=== PATIENT | female | born 2000 | race Caucasian/White ===

== ENCOUNTER 2024-03-21 14:24 | Emergency (ER) | payer MEDICAID, SELFPAY ==
[2024-03-21 14:28] VITALS: BP 120/70; RESP 22; TEMP 37.1; O2SAT 99; BMI 23.3
--- NOTE | 2024-03-21 14:54 | PD.EDRME ---
Rapid Medical Screening Exam RME Arrival date/time: 03/21/24 14:24 Chief Complaint: Alcohol Time Seen by Provider: 03/21/24 14:40 Vital signs: Vital Signs Temperature 98.7 F 03/21/24 14:28 Respiratory Rate 22 H 03/21/24 14:28 Blood Pressure 120/70 03/21/24 14:28 Pulse Oximetry (%) 99 03/21/24 14:28 Oxygen Delivery Method Room Air 03/21/24 14:28 Vital signs reviewed by provider: Yes RME Narrative: 23-year-old female presents for evaluation of nausea and vomiting. She reports that she is in alcohol withdrawal. She reports drinking half a gallon of vodka last night at approximately 10 PM. She reports x1 prior hospitalization for alcohol withdrawal. Denies CP, SOB, MCKEON, dizziness, confusion, and seizures.
[2024-03-21 15:49] LABS: Basophils % (Auto) 0 % (0-2.5); Eosinophils % (Auto) 0 % (0-10); Hematocrit 41.3 % (36.0-46.0); Hemoglobin 13.2 g/dL (12.0-16.0); Immature Granulocytes % (Auto) 0 % (0-0); Immature Granulocytes Auto 0.02 Thou/mm3 (0.00-0.00); Lymphocytes # (Auto) 0.3 Thou/mm3 (1.0-4.8); Lymphocytes % (Auto) 3 % (10-50); Mean Corpuscular Hemoglobin 27.7 pg (25.0-35.0); Mean Corpuscular Volume 87 fL (80-100); Monocytes # (Auto) 0.2 Thou/mm3 (0.0-0.8); Monocytes % (Auto) 2 % (0-12); Neutrophils # (Auto) 9.6 Thou/mm3 (1.8-7.7); Neutrophils % (Auto) 95 % (37-80); Nucleated Red Blood Cell % 0 /100 WBC (0); Platelet Count 430 Thou/mm3 (140-440); RDW Standard Deviation 45.6 fL (36.4-46.3); Red Blood Count 4.77 Miln/mm3 (4.00-5.20); White Blood Count 10.1 Thou/mm3 (3.6-11.0)
[2024-03-21 16:04] LABS: Alanine Aminotransferase 69 U/L (10-49); Albumin, Serum 5.5 gm/dL (3.5-5.0); Alcohol, Blood Medical 290.3 mg/dL (0-10.0); Alkaline Phosphatase 37 U/L (46-116); Anion Gap 25 (7-16); Aspartate Amino Transferase 98 U/L (0-34); BUN/Creatinine Ratio 11 Ratio (12-20); Bilirubin,Total 0.3 mg/dL (0.3-1.2); Blood Urea Nitrogen 8 mg/dL (9-23); Calcium 9.5 mg/dL (8.3-10.6); Calcium (Corrected) 9.5 mg/dL (8.5-10.1); Chloride 96 mMol/L (98-107); Creatinine (Component) 0.7 mg/dL (0.6-1.3); Estimated Creatinine Clearance 111.5 mL/min (>60); Globulin 2.8 gm/dL (2.3-3.5); Glucose 100 mg/dL (74-106); Lipase 66 U/L (12-53); Osmolality,Calculated 266 (275-295); Potassium 4.3 mMol/L (3.4-5.1); Sodium 134 mMol/L (136-145); Total Protein 8.3 gm/dL (5.7-8.2); eGFR > 60 See Note
[2024-03-21 16:05] LABS: HCG Qualitative,Urine Negative
[2024-03-21 16:22] LABS: Amphetamine/Methamp Scrn,U Negative (Negative); Barbiturate Screen,Urine Negative (Negative); Benzodiazepines Screen,Urine Negative (Negative); Benzoylecgonine Screen, Ur Negative (Negative); Fentanyl Screen,Urine Negative (Negative); Opiate Screen,Urine Negative (Negative); THC Screen,Urine Negative (Negative)
[2024-03-21 16:26] LABS: Carbon Dioxide 13.5 mMol/L (20.0-31.0)
[2024-03-21 17:44] VITALS: BP 115/80; PULSE 142; RESP 20; TEMP 36.7; O2SAT 99
[2024-03-21] MEDS: SODIUM CHLORIDE 0.9% 1000 ML 1,000 ML 999 ML IV (18:38)
[2024-03-21] MEDS: THIAMINE INJ 100 MG in SODIUM CHLORIDE 0.9% 100 ML 202 MG IV (18:39)
[2024-03-21] MEDS: ONDANSETRON INJ 2 MG/ML INJ 2 ML 4 MG IV ×2 (18:40→20:14)
[2024-03-21 18:50] VITALS: BP 125/72; PULSE 150; RESP 20; TEMP 36.7; O2SAT 98
--- NOTE | 2024-03-21 18:50 | PD.EDALCOH ---
ED Alcohol RME/HPI General Chief Complaint: Alcohol Stated Complaint: N/V Time Seen by Provider: 03/21/24 14:40 Source: patient and EMS Arrival date/time: 03/21/24 14:24 Mode of arrival: EMS Limitations: no limitations RME / HPI RME / HPI narrative: 23-year-old female presents for evaluation of nausea and vomiting. She reports that she is in alcohol withdrawal. She reports drinking half a gallon of vodka last night at approximately 10 PM. She reports x1 prior hospitalization for alcohol withdrawal. Denies CP, SOB, MCKEON, dizziness, confusion, and seizures. Dr. Fernandes's Main ED Evaluation: 23-year-old female with history of chronic alcohol use and depression on Zoloft 100mg QD who presents to the emergency department via ambulance due to alcohol withdrawal symptoms. Patient notes she was sober for the past 6 months until 2 nights ago when she relapsed and consumed approximately 1 bottle of 750 mL of Vodka. She has not consumed alcohol in the past 24 hours and started to develop withdrawal symptoms including shivers therefore she called an ambulance to be seen here for further evaluation. She notes nausea and vomiting while here but no diarrhea. She also denies fever, chills, sweating, headache, dizziness, falls, injuries, loss of consciousness, chest pain, abdominal pain, shortness of breath, UTI symptoms, localized weakness or any other medical complaints or associated symptoms. She reports similar episodes of alcohol withdrawal about 6 months ago and then 1 year prior to to that episode. She also notes she has been in AA in the past and it has worked well for her. She smokes 1 pack of cigarettes a day. She denies history of substance abuse. PCP: [facility] Related Data Allergies Allergy/AdvReac Type Severity Reaction Status Date / Time No Known Allergies Allergy Verified 03/21/24 17:09 Review of Systems Review of Systems Systems Reviewed: All systems reviewed, normal except as documented Past Medical History Past Medical History CARDIAC: Negative Congestive Heart Failure RESPIRATORY: Negative Chronic Obstructive Pulmonary Disease (COPD) GENITOURINARY: Negative Renal Disease ENDOCRINE: Negative Diabetes Mellitus Type 1 or Diabetes Mellitus Type 2 PSYCHO/SOCIAL: Positive Depression and Anxiety Social History SMOKING STATUS: Current some day smoker ED Exam Narrative Physical exam: GENERAL: Patient is alert awake oriented x3 under no distress, laying down comfortably at 30-45?; does not look ill/ toxic. Patient has good eye contact. Patient is cooperative. VITALS: All vitals were reviewed and the pulse ox is 95% on room air, which is normal according to my interpretation. HEENT: Normocephalic, atraumatic and nontender. Pupils are equal and reactive to light and accommodation. Oral mucosa are moist. NECK: Supple, nontender, no meningismus, no JVD. CHEST: Nontender on palpation, no deformity and no crepitus. CARDIOVASCULAR: Heart tachycardic, no murmur or gallop rub or extra beats. LUNGS: Clear to auscultation bilaterally with symmetrical chest rise. No laboring tachypnea or wheezing. No intercostal subcostal retraction. No rales and no rhonchi. ABDOMEN: Soft, flat, nontender at all, no guarding or rebound tenderness. There are no abnormal masses palpated. No pulsatile masses or bruits. Active and normal bowel sounds. GENITALIA: Not examined. RECTAL EXAM: Not done. EXTREMITIES: Nontender. No edema. No cyanosis. Patient is able to move all 4 extremities well. SKIN: Warm and dry, no rashes noted. MUSCULOSKELETAL: No lumbar or midline bony tenderness. There is no CVA tenderness. No paraspinal muscle spasm or tenderness. NEURO: Cranial nerves II through XII grossly intact. There is no focalization. GCS is 15. She is neurologically intact however she is tremoring. She has a clear speech and she does not seem to be intoxicated despite the fact that her alcohol level came back elevated at 290. PSYCHIATRIC: Patient is in normal mood and affect, cooperative. General Limitations: Present no limitations Course Quality Measures none Orders Category Date Time Status Insert IV NOW Care 03/21/24 14:56 Completed Alcohol, Blood Medical Stat Lab 03/21/24 15:24 Completed Alcohol, Blood Medical Stat Lab 03/21/24 19:17 Completed Basic Metabolic Panel Stat Lab 03/21/24 21:51 Ordered CBC [CBC] Stat Lab 03/21/24 15:24 Completed CMP [Comprehensive Metabolic Panel] Stat Lab 03/21/24 15:24 Completed Comprehensive Metabolic Panel Stat Lab 03/21/24 19:17 Completed Drug Screen,Urine Stat Lab 03/21/24 15:31 Completed HCG Qualitative,Urine Stat Lab 03/21/24 15:31 Completed Lactate (Lactic Acid) Stat Lab 03/21/24 21:51 Ordered Lactic Acid [Lactate (Lactic Acid)] Stat Lab 03/21/24 19:17 Completed Lactic Acid, 3 HR Stat Lab 03/21/24 22:19 Ordered Lipase Stat Lab 03/21/24 15:24 Completed Mag [Magnesium] Stat Lab 03/21/24 15:24 Completed Dextrose 5%-Water [D5w] 1,000 ml Med 03/21/24 19:00 Discontinued IV 999 mls/hr Multivitamin Inj [Infuvite Inj] Med 03/21/24 15:19 Discontinued 10 ml IV X1 ONE Nicotine Patch [Nicoderm Patch] Med 03/21/24 19:39 Discontinued 21 mg TOP X1 ONE Ondansetron Inj [Zofran Inj] Med 03/21/24 17:17 Discontinued 4 mg IV X1 ONE Ondansetron Inj [Zofran Inj] Med 03/21/24 19:43 Discontinued 4 mg IV X1 ONE Sodium Chloride 0.9% 1000 ml [Ns] 1,000 ml Med 03/21/24 14:56 Discontinued IV 999 mls/hr Thiamine Inj [Vitamin B-1 Inj] 100 mg Med 03/21/24 15:19 Discontinued Sodium Chloride 0.9% [Ns] 100 ml IV X1 Vital Signs Vital signs: Vital Signs Temperature 98.7 F 03/21/24 14:28 Respiratory Rate 22 H 03/21/24 14:28 Blood Pressure 120/70 03/21/24 14:28 Pulse Oximetry (%) 99 03/21/24 14:28 Oxygen Delivery Method Room Air 03/21/24 14:28 Procedures -ED Smoking Cessation Time Spent Discussing Smoking Cessation w/Patient (min): 5 Patient Acknowledges Need for Cessation: Yes Additional Comments: The patient was counseled as to the multiple risks to their health from continued use of tobacco products. It was explained that continuing to smoke may lead to multiple short and retirement negative health consequences, including but not limited to mouth/esophageal/lung cancer, COPD, and heart disease. The patient states she/he understands these risks and also understands the options and resources available to them to help them stop smoking. Nicotine replacement therapy, local hotlines, and local resources were discussed as viable options for helping them stop their tobacco use. The total time spent counseling the patient regarding tobacco cessation was 5 minutes. Discharge Plan Plan Patient Disposition: Left Against Medical Advice Prescriptions/Referrals Referrals: Garrick Stokes MD [Primary Care Provider] - In 1 week Problem List Clinical Impression: Alcoholic intoxication, Alcohol withdrawal syndrome Patient/Caregiver Discharge Instructions Print Language: Armenian Stand Alone Forms: Lexie Award Info., Patient Portal Info Letter Alcohol MDM Narrative MDM Narrative: Scribe Attestation: I, Stu Nguyen, am scribing for and in the presence of Dr. Fernandes. Patient was brought in by ambulance from home due to alcohol withdrawal symptoms. Patient is a chronic alcoholic and she states that she was off drinking alcohol for the last 6 months and 2 nights ago she she decided to drink 1 bottle of 750 mL vodka. She did not drink any alcohol for the last 24 hours therefore she started having lots of shivers and withdrawal symptoms which she is familiar with and therefore she called an ambulance because she did not feel safe to drive to the hospital. She started vomiting here in the hospital emergency room but not at home; however, she was nauseated at home and no diarrhea. She denies any other symptoms such as fever chills sweating headache dizziness fall or injuries loss of consciousness chest pain abdominal pain shortness of breath UTI symptoms or any localized weakness. She did go through this at least 6 months ago and again a year ago. She does suffer of depression but she absolutely denies being suicidal or homicidal and she denies hallucinations. I looked at her old records and she has never been to this hospital before. Her CBC and chemistries are unremarkable except for a metabolic acidosis of low carbon dioxide at 13.5 and anion gap of 25. Her BUN and creatinine are 8 and 0.7. Her liver enzymes are slightly elevated and I did tell the patient that she needs to quit completely drinking alcohol because otherwise she will become a cirrhotic. She said that she recognizes that because her mom of liver cirrhosis. She denies using any illicit drugs but she also smokes 1 pack of cigarettes per day which I told her that she should quit that too. She wants a nicotine patch now. Her physical exam is unremarkable and she is neurologically intact however she is tremoring. She has a clear speech and she does not seem to be intoxicated despite the fact that her alcohol level came back elevated at 290. Her drug screen is negative. Patient has already been given normal saline with a mixture of multivitamins and thiamine. Her magnesium level is normal at 2.0; therefore I will not give her magnesium at this time. I ordered a lactic acid on her and it came back elevated at 4.6. Because of her tachycardia at 140, I had already ordered a second liter of fluids in the form of D5W. After the second liter infused, I will repeat her chemistries and her lactic acid. If she feels better of the vomiting and her tachycardia relatively improves, I will discharge her home. At 9:55 PM, patient decided to sign out AMA. She is totally alert awake oriented x 3, under no distress and she says that she feels much better. I canceled the repeat lactic acid and the repeat BMP. Patient left the ER walking by herself without any assistance. Differential diagnoses: Alcohol withdrawal symptoms, chronic alcoholism, acute alcohol intoxication, depression but no suicidal ideations. Provider Notation: Although this document has been carefully reviewed, there may still be some phonetic and other typographical errors. These errors are purely grammatical due to imperfections in the software program and should not be construed in any way to compromise the substance of the patient's medical care during this visit. Patient data External records reviewed:: None Clinical information provided by:: patient Social determinants that could affect healthcare access:: alcohol use Patient has the following chronic illnesses:: chronic alcoholic How is presenting disease/condition affected by chronic disease/condition?: exacerbated by Evaluation data The following diagnostics were reviewed and interpreted by me:: lab results Lab and/or radiology exams considered but not ordered:: None Interpretation Summary: See narrative Medications / Prescriptions Medications or Prescriptions considered but not ordered:: None Medication administrations:: Medication Administration History Discontinued Medications Sodium Chloride (Ns) 1,000 mls @ 999 mls/hr IV .Q1H1M ONE Stop: 03/21/24 15:56 Last Infusion: 03/21/24 19:26 Dose: Infused Documented By: Admin: 03/21/24 18:38 Dose: 999 mls/hr Documented By: ARF Thiamine HCl 100 mg/ Sodium (Chloride) 101 mls @ 202 mls/hr IV X1 ONE Stop: 03/21/24 15:48 Last Infusion: 03/21/24 19:26 Dose: Infused Documented By: Admin: 03/21/24 18:39 Dose: 202 mls/hr Documented By: ARF Dextrose (D5w) 1,000 mls @ 999 mls/hr IV .Q1H1M ONE Stop: 03/21/24 20:00 Last Infusion: 03/21/24 20:20 Dose: Infused Documented By: Admin: 03/21/24 19:19 Dose: 999 mls/hr Documented By: ANTOINETTE Multivitamins/Minerals (Multivitamin Inj 10 Ml Vial) 10 ml IV X1 ONE Stop: 03/21/24 15:20 Last Admin: 03/21/24 18:39 Dose: 10 ml Documented By: SHANON Nicotine (Nicotine Patch 21 Mg/24 Hr Patch.Td24) 21 mg TOP X1 ONE Stop: 03/21/24 19:40 Last Admin: 03/21/24 20:14 Dose: 21 mg Documented By: ANTOINETTE Ondansetron HCl (Ondansetron Inj 2 Mg/Ml Inj 2 Ml) 4 mg IV X1 ONE; Protocol Stop: 03/21/24 17:18 Last Admin: 03/21/24 18:40 Dose: 4 mg Documented By: SHANON Ondansetron HCl (Ondansetron Inj 2 Mg/Ml Inj 2 Ml) 4 mg IV X1 ONE; Protocol Stop: 03/21/24 19:44 Last Admin: 03/21/24 20:14 Dose: 4 mg Documented By: ANTOINETTE As above if any Consultations Consultation(s) initiated? (list below): No Diagnosis Differential diagnosis alcohol: other (Alcohol withdrawal symptoms, chronic alcoholism, acute alcohol intoxication, depression but no suicidal ideations) Most likely diagnosis given after review of the tests above:: Alcoholic intoxication, Alcohol withdrawal syndrome Admission Indicated Admission indicated?: not indicated Admission Request Was there a request for admission?: No Disposition Plan Disposition Plan: other (specify) (Patient signed out against medical advice.)
[2024-03-21] MEDS: DEXTROSE 5%-WATER 1,000 ML 999 ML IV (19:19)
[2024-03-21 19:23] LABS: Lactate (Lactic Acid) 4.6 mMol/L (0.4-2.0)
[2024-03-21 19:27] VITALS: BP 126/72; PULSE 133; RESP 19; O2SAT 95
[2024-03-21] MEDS: NICOTINE PATCH 21 MG/24 HR PATCH.TD24 TOP (20:14)
[2024-03-21 21:00] LABS: Alanine Aminotransferase 61 U/L (10-49); Albumin, Serum 4.7 gm/dL (3.5-5.0); Albumin/Globulin Ratio 2.2 (1.2-2.2); Alcohol, Blood Medical 159.1 mg/dL (0-10.0); Alkaline Phosphatase 30 U/L (46-116); Anion Gap 22 (7-16); Aspartate Amino Transferase 92 U/L (0-34); BUN/Creatinine Ratio 15 Ratio (12-20); Bilirubin,Total 0.4 mg/dL (0.3-1.2); Blood Urea Nitrogen 9 mg/dL (9-23); Calcium 8.3 mg/dL (8.3-10.6); Calcium (Corrected) 8.3 mg/dL (8.5-10.1); Chloride 99 mMol/L (98-107); Creatinine (Component) 0.6 mg/dL (0.6-1.3); Estimated Creatinine Clearance 130.1 mL/min (>60); Globulin 2.1 gm/dL (2.3-3.5); Glucose 66 mg/dL (74-106); Osmolality,Calculated 266 (275-295); Potassium 4.7 mMol/L (3.4-5.1); Sodium 135 mMol/L (136-145); Total Protein 6.8 gm/dL (5.7-8.2); eGFR > 60 See Note
[2024-03-21 21:02] LABS: Carbon Dioxide 14.5 mMol/L (20.0-31.0)
[2024-03-21 21:39] VITALS: BP 106/68; PULSE 124; RESP 20; O2SAT 96
[2024-03-21 22:19] LABS: Reflex Lactate? Y
== END 2024-03-21 22:03 | disposition left against medical advice (07) ==
PROVIDERS: Physician Assistant; Emergency Provider Emergency Medicine; PCP Family Medicine
DX: F10.929 Alcohol use, unspecified with intoxication, unspecified (principal); F10.939 Alcohol use, unspecified with withdrawal, unspecified; Y90.8 Blood alcohol level of 240 mg/100 ml or more; Z53.29 Procedure and treatment not carried out because of patient's decision for other reasons
CPT/HCPCS: 36415; 80048; 80053; 80307; 80320; 81025; 83605; 83690; 83735; 85025; 96361; 96374; 99284; J2405; J3411; J7030; J7050; J7070; A9270; G0480